=== PATIENT | female | born 1955 | race African-American/Black ===

== ENCOUNTER → 2019-07-06 11:22 | Outpatient (CLI) | payer MEDICARE ==
--- NOTE | ~2019-07-06 | EC ---
PATIENT:PAULETTE ALATORRE DATE OF SERVICE: 07/06/19 SEX: F MEDICAL RECORD: [id number] DATE OF : 59 LOCATION:[facility] AGE OF PATIENT: 63 ADMISSION DATE: 07/06/19 REFERRING PHYSICIAN: INTERPRETING PHYSICIAN: MONTSE NGUYEN MD ECHOCARDIOGRAM REPORT ECHO CHARGES 4 ECHO COMPLETE Date: 07/06/19 CLINICAL DIAGNOSIS: MITRAL REGURG ECHOCARDIOGRAPHIC MEASUREMENTS (adult normal given) AC root (d.<3.7cm) 3.2 cm LV Septum d (<1.2 cm> 1.5 cm Valve Excursion 1.9 cm LV Septum (systole) 1.6 cm Left Atria (s.<4.0cm> 4.2 cm LVPW d(<1.2cm) 1.4 cm RV (d.<2.3cm) 2.9 cm LVPW (sytole) 1.9 cm LV diastole(<5.6CM) 3.9 cm MV E-F(>70mm/sec) cm LV systole 2.4 cm LVOT Diameter 2.1 cm MV exc.(>10mm) 1.2 cm Est.ejection fraction (50-75%) % DOPPLER: LVIT cm/sec A 91.0 cm/sec E 74.0 cm/sec LA cm/sec RVSP 29 mmHg LVOT 99 cm/sec AOP1/2T m/s Asc. Ao 159 cm/sec RVOT 85 cm/sec RA cm/sec PA 125 cm/sec AV Gradient Peak 10.12mmHg AV Mean 4.99 mmHg AV Area 2.5 cm MV Gradient Peak 5.98 mmHg MV Mean 2.16 mmHg MV Area cm COMMENTS: Needle Leader: Tom BASURTO Driver/Guide: Radha Nguyen TAPE# PACS Pericardial Effusion N DATE OF SERVICE: 07/06/2019 FINDINGS: 1. Left ventricular chamber size is within normal limits. Left ventricular systolic function is normal at 60% to 65%. 2. Left atrium is enlarged at 4.2 cm. Right atrium and right ventricle chamber sizes are within normal limits. 3. Valvular structures have normal structure and motion. 4. Doppler interrogation reveals mild aortic insufficiency, mild mitral regurgitation, mild tricuspid regurgitation, no other valvular insufficiency or ECHOCARDIOGRAM REPORT [id number] PAULETTE ALATORRE stenosis. Pulmonary systolic pressure estimated at 29 mmHg. 5. No evidence of pericardial effusion or left ventricular thrombus. TRANSINT:[id number] Voice Confirmation ID: [id number] DOCUMENT ID: [id number] MONTSE NGUYEN MD CC: [id number] DICTATION DATE: 07/06/191452 WIRER HELPER: 07/06/192128 [facility] [address] [id number]
== END | disposition home or self-care (01) ==
LOC: D.HCCECHO 11:22
PROVIDERS: ATTEND Internal Medicine Interventional Cardiology
DX: I34.0 Nonrheumatic mitral (valve) insufficiency (principal)

== ENCOUNTER → 2020-02-04 07:47 | Outpatient (CLI) | payer MEDICARE | END | disposition home or self-care (01) | LOC: D.HCCARDIO 07:47 | PROVIDERS: ATTEND Internal Medicine Cardiovascular Disease | DX: I20.9 Angina pectoris, unspecified (principal) ==

== ENCOUNTER 2020-02-25 06:20 | Day surgery (SDC) | payer MEDICARE ==
[~2020-02-25] VITALS: Ht 160 cm; Wt 79.5 kg
--- NOTE | ~2020-02-25 | HEMODYNAMI ---
PATIENT:PAULETTE ALATORRE MEDICAL RECORD: [id number] : 59 LOCATION:[facility] ADMISSION DATE: 02/25/20 Generatedon:02/25/20208:19 Patient name: PAULETTE ALATORRE Patient #: [id number] SSN: [id number] : 1955 Date of study: 02/25/2020 Page: Of Hemodynamic Procedure Report Patient Data Patient Demographics Procedure consent was obtained First Name: PAULETTE Gender: Female Last Name: LANDRY : 1955 Patient #: [id number] Age: 64 year(s) Race: Black SSN: [id number] Additional ID: [id number] Contact details [address]: [address] [place] [address] State: [place] City: [place] Zip code: [address] Past Medical History Performed procedures and imaging results Date Procedure Procedure Results Comments 02/04/2020 Stress testing Positive->Intermediate with SPECT MPI risk Allergies: No known allergies Admission Admission Data Admission Date: 02/25/2020 Admission Time: 6:20 Arrival Date: 02/25/2020 Arrival Time: 0:00 Admit Source: Other Insurance Payor: Private health insurance [facility] #: [id number] Procedure Procedure Types Cath Procedure Diagnostic Procedure [facility] w/Coronaries Sedation Charges Moderate Sedation up to 15 minutes Procedure Description Procedure Date Procedure Date: 02/25/2020 Procedure Start Time: 8:00 Procedure End Time: 8:14 Procedure Staff Name Function Adin Reyna MD Performing Physician Jami Gee RT Scientific Recruiter Dov Mccall RN Nurse Bailey Chan RT Scrub Minal Szymanski RT Monitor Procedure Data Cath Procedure Fluoroscopy Diagnostic fluoroscopy Total fluoroscopy Time: 1.7 time: 1.7 min min Diagnostic fluoroscopy Total fluoroscopy dose: 379 dose: 379 mGy mGy Contrast Material Contrast Material Type Amount (ml) Isovue 300 46 Entry Location Entry Primary Successful Side Size Upsize Upsize Entry Closure Succes sful Closure Location (Fr) 1 (Fr) 2 (Fr) Remarks Device Remarks Femoral Right 5 Fr Exoseal artery Estimated blood loss: 5 ml Procedure Complications No complications Procedure Medications Medication Administration Route Dosage 0.9% NaCl I.V. 100 ml/hr Oxygen etCO2 Nasal cannula 2 l/min Heparin Flush Bag added to field 2 bags (1000units/500ml NS) Lidocaine 2% added to field 20 Radial Cocktail added to field 1 syringe (Verapamil 2mg/Nitro 400mcg/Heparin 1500units) Versed I.V. 2 mg Fentanyl I.V. 100 mcg Benadryl I.V. 50 mg Hemodynamics Rest Heart Rate: 86 (bpm) Pressure Samples Time Site Value (mmHg) Purpose Heart Use Rate(bpm) 8:10 LV 163/-6,9 Snapshot 83 8:10 AO 152/79(109) Pullback 86 8:10 LV 185/-1,39 Pullback 86 Gradients Valve Time Site 1 Site 2 Mean SEP/DFP Peak To Heart Use (mmHg) (sec/min) Peak Rate (mmHg) (bpm) Aortic 8:10 LV AO 18 27 33 86 185/-1,39 152/79(109) Calculations Valve P-P Mean Valve Index Valve Source Name Gradient Area Flow (cm2) Aortic 33 18 33 18 Snapshots Pre Cath Intra NCS Post Cath Vital Signs Time Heart Resp SPO2 etCO2 NIBP (mmHg) Rhythm Pain Sedation Rate (ipm) (%) (mmHg) Status Level (bpm) 7:55:49 80 18 100 37.4 162/91(125) NSR 0 (11) 10(A) , No pain 8:00:05 79 16 97 38.9 145/90(111) NSR 0 (11) 10(A) , No pain 8:04:21 80 15 97 39.6 148/89(114) NSR 0 (11) 9(A) , No pain 8:08:37 83 14 98 41.9 165/93(138) NSR 0 (11) 9(A) , No pain 8:12:55 84 14 99 36.7 155/90(126) NSR 0 (11) 10(A) , No pain Medications Time Medication Route Dose Verified Delivered Reason Notes Ef fectiveness by by 7:44:48 0.9% NaCl I.V. 100 Dov Odv Per ml/hr Stefany Mccall physician RN RN 7:44:59 Oxygen etCO2 2 l/min Dov Dov for low 02 Nasal Lorigan Lorigan sats cannula RN RN 7:45:20 Heparin Flush added 2 bags Dov Dov used for Bag to Lorigan Lorigan procedure (1000units/500ml field RN RN NS) 7:45:31 Lidocaine 2% added 20ml Dov Dov for local to vial Lorigan Lorigan anesthetic field RN RN 7:45:45 Radial Cocktail added 1 Dov Dov used for (Verapamil to syringe Lorigan Lorigan procedure 2mg/Nitro field RN RN 400mcg/Heparin 1500units) 7:55:22 Versed I.V. 2 mg Dov Dov for Lorigan Lorigan sedation RN RN 7:55:32 Fentanyl I.V. 100 mcg Dov Dov for Lorigan Lorigan sedation RN RN 7:57:39 Benadryl I.V. 50 mg Dov Dov Per Lorigan Lorigan physician RN try out person Log Time Note 7:26:45 Informed consent obtained and on chart 7:27:05 Diagnostic Cath Status : Elective 7:31:02 Arrival Date: 02/25/2020 12:00:00 AM 7:31:03 Admit Source: Other 7:31:06 Insurance Payor : Private health insurance 7:32:54 Procedure Status Elective Heart Cath (OP). 7:33:08 Jami Gee RT(R) sent for patient. Start room use. 7:33:15 Time tracking: Regular hours (M-F 7:00 - 5:00) 7:33:19 Plan of Care:Hemodynamics will remain stable., Cardiac rhythm will remain stable., Comfort level will be maintained., Respiratory function will remain adequate., Patient/ family verbilizes understanding of procedure., Procedure tolerated without complication., Recovers from procedure without complications.. 7:33:35 H&P Date Dictated: 01/26/2020 Within 30 days and on chart.. 7:33:36 Pre-procedure instructions explained to patient. 7:33:36 Pre-op teaching completed and patient verbalized understanding. 7:33:38 Family unavailable. 7:33:40 Patient NPO since Midnight. 7:33:46 Patient allergic to No known allergies 7:34:03 Stress Test: no; abnormal anterior and apical 7:34:07 Alarms reviewed by RPerla NPerla 7:34:07 Sharps counted by scrub and verified by R.N. 7:35:37 Patient received from Pre/Post Procedure Room to CCL 1 Alert and oriented. Tansferred to table in Supine position. 7:35:38 Warm blankets applied, and lori hugger turned on for patient comfort. 7:35:39 Correct patient and procedure confirmed by team. 7:35:39 ECG and BP/O2 sat monitors applied to patient. 7:36:06 Is the patient allergic to Iodine/contrast media? No. 7:36:28 Was the patient premedicated? N/A 7:36:32 Is patient on blood thinner?No 7:36:34 Patient diabetic? No. 7:36:38 If diabetic: On Metformin? N/A 7:36:55 ----Pre-sedation anethsthesia assessment.---- 7:37:02 Previous problem with sedation/anesthesia? No ? 7:37:05 Snore? No 7:37:06 Sleep apnea? No 7:37:07 Deviated septum? No 7:37:10 Opens mouth fully? Yes 7:37:11 Sticks out tongue? Yes 7:37:14 Airway obstruction? No ? 7:37:16 Dentures? No ? 7:37:19 Pre procedure: right dorsailis pedis pulse 2+ Normal; easily identifiable; not easily obliterated 7:37:22 Patient pain scale 0/10 ?. 7:37:29 IV patent on arrival in right antecubital with 0.9% NaCl at KVO. 7:37:39 Right Radial & Right Groin area was prepped with chlora-prep and draped in sterile fashion 7:44:48 0.9% NaCl 100 ml/hr I.V. was administered by Dov Mccall RN; Per physician; Verbal order read back and verified. 7:44:59 Oxygen 2 l/min etCO2 Nasal cannula was administered by Dvo Mccall RN; for low 02 sats; Verbal order read back and verified. 7:45:20 Heparin Flush Bag (1000units/500ml NS) 2 bags added to field was administered by Dov Mccall RN; used for procedure; Verbal order read back and verified. 7:45:31 Lidocaine 2% 20ml vial added to field was administered by Dov Mccall RN; for local anesthetic; Verbal order read back and verified. 7:45:45 Radial Cocktail (Verapamil 2mg/Nitro 400mcg/Heparin 1500units) 1 syringe added to field was administered by Dov Mccall RN; used for procedure; Verbal order read back and verified. 7:46:25 Physician arrived 7:46:25 --------ALL STOP TIME OUT------ 7:46:25 Final Timeout: patient, procedure, and site verified with staff and physician. All members of the team are in agreement. 7:46:29 Right Radial & Right Groin site verified by team. 7:49:12 Fire Safety Assessment: A--An alcohol-based skin anteseptic being used preoperatively., C--Open oxygen or nitrous oxide is being used., D--An ESU, laser, or fiber-optic light is being used. 7:49:15 Physical assessment completed. ASA score P 2 - A patient with mild systemic disease as per Adin Reyna MD. 7:49:21 Sedation plan: IV Moderate Sedation Medication:Versed, Fentanyl 7:49:34 Use device set Radial Dx or PCI 7:49:36 ACIST Syringe (05702) opened to sterile field. 7:49:36 Medline Cath Pack ([id number]) opened to sterile field. 7:49:37 Bag Decanter (2002) opened to sterile field. 7:49:37 ACIST Hand Control (41365) opened to sterile field. 7:49:37 ACIST Manifold (95204) opened to sterile field. 7:49:38 Tegaderm 4 x 4 (1626W) opened to sterile field. 7:49:39 MBrace Wrist Support ([id number]) opened to sterile field. 7:49:40 NEEDLE Cook 21G 4cm Radial (C73362) opened to sterile field. 7:49:42 SHEATH 6FR RAIN (3549027) opened to sterile field. 7:49:43 EMERALD Guide Wire (999-648) opened to sterile field. 7:54:40 Vital chart was started 7:55:22 Versed 2 mg I.V. was administered by Dov Mccall RN; for sedation; Verbal order read back and verified. 7:55:32 Fentanyl 100 mcg I.V. was administered by Dov Mccall RN; for sedation; Verbal order read back and verified. 7:57:29 Procedure started. 7:57:29 Full Disclosure recording started 7:57:39 Benadryl 50 mg I.V. was administered by Dov Mccall RN; Per physician; Verbal order read back and verified. 7:59:[address] Reyna preparing for femoral access 8:00:14 Local anesthetic to right femoral artery with Lidocaine 2% by Adin Reyna MD.INITIAL ACCESS ONLY 8:02:51 SHEATH 5FR [place] (ARV981) opened to sterile field. 8:04:24 A 5 Fr sheath was inserted into the Right Femoral artery 8:04:58 DIAGNOSTIC Multipack 5Fr catheter set (FQ3807) opened to sterile field. 8:05:07 5 Fr jl 4 guide catheter was inserted over the wire 8:05:40 LCA angiography performed. 8:05:43 Injector settings: Ml/sec: 3, Volume: 6, 8:06:50 Catheter removed. 8:06:58 5 Fr 3drc guide catheter was inserted over the wire 8:07:57 RCA angiography performed. 8:08:01 Injector settings: Ml/sec: 3, Volume: 6, 8:08:03 Baseline sample Acquired. 8:08:27 Catheter removed. 8:08:39 5 Fr pigtail guide catheter was inserted over the wire 8:08:47 EXOSEAL 5Fr (EX500) opened to sterile field. 8:10:05 LV hemodynamics recorded. 8:10:06 LV gram done using MCCLURE 8:10:08 Injector settings: Ml/sec: 5, Volume: 15, 8:10:14 EF : 60 % 8:10:24 Catheter removed. 8:11:26 Sheath removed intact; hemostasis achieved with Exoseal to the Right Femoral artery. 8:11:27 Procedure ended.(Physican Out) 8:11:56 Fluoroscopy time 01.70 minutes. 8:12:01 Fluoroscopy dose: 379 mGy 8:12:01 Flurop Dose total: 379 8:12:07 Dose Area Product 23317 mGy/cm. 8:13:39 Contrast amount:Isovue 300 46ml. 8:13:41 Maximum allowable dose exceeded? No. 8:13:42 Sharps counted by scrub and verified by R.N. 8:13:45 Insertion/operative site no bleeding no hematoma. 8:13:50 Post right radial artery:stable 8:13:52 Post Procedure Pulses reassessed and unchanged 8:13:54 Post procedure rhythm: unchanged. 8:13:57 Estimated blood loss: 5 ml 8:13:58 Post procedure instruction explained to patient.Patient verbalizes understanding. 8:13:59 Patient needs reinforcement of post procedure teaching. 8:14:23 Procedure type changed to Cath procedure, Diagnostic procedure, LHC, C w/Coronaries, Sedation Charges, Moderate Sedation up to 15 minutes 8:14:24 Procedure and supply charges have been captured, reviewed, submitted and are correct. 8:14:28 Procedure Complication : No complications 8:14:32 Vital chart was stopped 8:14:36 [facility] Findings: mild to moderate CAD (<70%) 8:14:38 Operative report dictated upon procedure completion. 8:14:38 See physician's report for complete and final results. 8:14:40 Report given to Pre/Post Procedure Room. 8:14:42 Patient transfered to Pre/Post Procedure Room with Stretcher. 8:14:45 Procedure ended. 8:14:45 Full Disclosure recording stopped 8:14:49 End room use (Document Last) 8:17:41 End room use (Document Last) 8:19:16 End room use (Document Last) Device Usage Item Name Manufacture Quantity Catalog Hospital Part Current Minima l Lot# / Number Charge Number Stock Stock Serial# Code ACIST Acist 1 63845 113180 492572 753973 20 Syringe Medical (96857) Systems Inc Medline Medline 1 [id number] 084772 80020 196746 5 Cath Pack ([id number]) Bag Microtek 1 753454 36539 230909 5 Decanter Medical Inc. () ACIST Hand Acist 1 05702 535236 525187 900782 5 Control Medical (00971) Systems Inc ACIST Acist 1 51848 353758 867512 450362 5 Manifold Medical (86240) Systems Inc Tegaderm 4 3M 1 1626W 931017 334439 081253 5 x 4 (1626W) MBrace Advanced 1 140-0250-00 972242 71479 468589 5 Wrist Vascular Support Dynamics ([id number]) NEEDLE Cook Cook Medical 1 Z75653 999624 836658 769154 5 21G 4cm Radial (Z90141) SHEATH 6FR Cardinal 1 6553330 767700 7083413 755802 5 [facility] (6765394) EMERALD Cardinal 1 502-455 156734 619065 291071 5 Guide Wire [facility] (502-455) SHEATH 5FR Terumo 1 YVS827 022113 229452 010072 5 [place] (UMJ080) DIAGNOSTIC Cardinal 1 IQ2263 160555 66467 793562 30 [facility] 5[facility] catheter set (AG6242) EXOSEAL 5Fr Cardinal 1 EX500 994933 728808 360804 10 (EX500) Health Signature Audit [place] Stage Time Signature Unsigned Intra-Procedure 02/25/2020 Minal Szymanski 8:17:41 AM RT(R) Intra-Procedure 02/25/2020 Dov 8:19:16 AM Stefany RN Intra-Procedure 02/25/2020 Adin Reyna MD 8:19:57 AM [facility] [address] [place] [address]
[2020-02-25] MEDS ORDERED: NORVASC5 MG PO (06:35)
[2020-02-25] MEDS ORDERED: ESTRACE2 MG PO (06:36)
[2020-02-25] MEDS ORDERED: AMBIEN5 MG PO (06:36)
[2020-02-25] MEDS ORDERED: LISINOPRIL10 MG PO (06:36)
[2020-02-25] MEDS ORDERED: ELAVIL10 MG PO (06:37)
[2020-02-25] MEDS ORDERED: EFFER-K 25 MEQ25 MEQ PO (06:37)
[2020-02-25 06:54] VITALS: BP 162/80; Ht 160 cm; Wt 79.5 kg
[2020-02-25 07:58] LABS: BASOPHILS 0.1 % (0-2); EOSINOPHILS 11.2 % (0-7); HEMATOCRIT 36.9 % (36.0-48.0); HEMOGLOBIN 12.6 g/dL (12-16); IMMATURE GRANULOCYTES 2.1 % (0-5); MCH 31.1 pg (26.0-34.0); MCHC 34.1 g/dL (31.0-37.0); MCV 91.1 fL (80.0-100.0); MEAN PLATELET VOLUME 11.7 fL (7.4-10.4); MONOCYTES 6.2 % (2-11); NEUTROPHILS 54.4 % (40-80); PLATELET COUNT 228 10x3/uL (130-400); RBC 4.05 10x6/uL (4.00-5.40); RDW 13.1 % (11.5-14.5); WBC 7.2 10x3/uL (4.8-10.8)
[2020-02-25 08:09] LABS: ALT (SGPT) 9 U/L (10-68); CALC OSMOLALITY 273 mosm/kg (275-300); CALCIUM 8.7 mg/dL (8.5-10.1); CARBON DIOXIDE 26.7 mmol/L (21.0-32.0); CHLORIDE - SERUM 103 mmol/L (98-107); CHOL - HDL RATIO 3.1 ratio (2.3-4.1); CHOLESTEROL, TOTAL 136 mg/dL (0-200); CREATININE - SERUM 0.8 mg/dL (0.6-1.3); GLUCOSE 85 mg/dL (74-106); HDL CHOLESTEROL 44 mg/dL (32-96); LDL CHOLESTEROL 66 mg/dL (0-100); LDL-HDL RATIO 1.5 ratio (1.5-3.5); POTASSIUM - SERUM 3.4 mmol/L (3.5-5.1); SODIUM 138 mmol/L (136-145); TRIGLYCERIDE 131 mg/dL (30-200); UREA NITROGEN 10 mg/dL (7-18); eGFR NON AFRICAN AMERICAN 77 mL/min (90-120)
--- NOTE | 2020-02-25 08:30 | NUR ---
PT RECEIVED VIA STRETCHER FROM BUTTERMAKER CONTINUOUS CHURN FOR RECOVERY. PT DROWSY,BUT AWAKE. PT DENIES PAIN OR DISCOMFORT AT THIS TIME. IV PATENT INFUSING VIA ORDERS TO R ARM. PT PLACED ON CARDIAC MONITORS. HR NSR RATE 77, BP 184/86, RR 13, SAT 97 ON ROOM AIR. R GROIN DRESSING CDI NO S/S HEMATOMA OR BLEEDING NOTED. LEG PINK AND WARM, PEDAL PULSES PALPABLE. PT INSTRUCTED TO KEEP HEAD ON PILLOW AND LEG STRAIGHT, SHE VERBALIZED UNDERSTANDING. CALL LIGHT IN REACH. NO FAMILY PRESENT
--- NOTE | 2020-02-25 08:45 | NUR ---
PT RESTING COMFORTABLY, DENIES PAIN OR NEEDS. R GROIN SOFT, DRESSING CDI NO S/S HEMATOMA OR BLEEDING. EXTREMITY WARM AND PINK, PEDAL PULSES PALPABLE. VSS AT PRESENT. CALL LIGHT IN REACH
--- NOTE | 2020-02-25 09:15 | NUR ---
R GROIN SOFT, DRESSING CDI NO S/S HEMATOMA OR BLEEDING NOTED 929 HOB ELEVATED SLIGHTLY, COFFEE SERVED PER PT REQUEST. DAUGHTER CALLED AND UPDATED ON DISCHARGE TIME W PT CONSENT. CALL LIGHT IN REACH. PT DENIES PAIN OR NEEDS AT THIS TIME
--- NOTE | 2020-02-25 09:51 | NUR ---
PT PLACED ON BEDPAN, VOIDING W/O DIFFICULITY. BED LINENS CHANGED AND REPOSITIONED IN BED. R GROIN SOFT, DRESSING CDI NO S/S HEMATOMA OR BLEEDING NOTED. HOB ELVATED. SANDWICH AND DRINK SERVED. VSS.
--- NOTE | 2020-02-25 10:20 | NUR ---
DISCHARGE INSTRUCTIONS REVIEWED W PT, SHE VERBALIZED UNDERSTANDING. IV REMOVED W CATH INTACT. MONITORS REMOVED. R GROIN SOFT, DRESSING REMAINS CDI NO S/S HEMATOMA OR BLEEDING NOTED. PT UP TO DRESS FOR DISCHARGE. 1025 PT AMBULATED TO BR, VOIDING W/O DIFFICULITY
--- NOTE | 2020-02-25 10:35 | NUR ---
PT DISCHARGED VIA WC TO DAUGHTER WAITING IN PRIVATE VEHICLE. PT HAD ALL BELONGINGS AND DISCHARGE PAPERWORK IN HAND.
== END 2020-02-25 10:35 | disposition home or self-care (01) ==
LOC: D.CATH 06:20
PROVIDERS: ATTEND Internal Medicine Cardiovascular Disease
DX: I20.9 Angina pectoris, unspecified (principal); R94.39 Abnormal result of other cardiovascular function study; I10 Essential (primary) hypertension; R53.83 Other fatigue; E78.00 Pure hypercholesterolemia, unspecified; R06.00 Dyspnea, unspecified; R07.9 Chest pain, unspecified